=== PATIENT | male | born 1955 ===

== ENCOUNTER 2021-02-15 16:09 | Emergency (ER) | payer SELFPAY ==
[2021-02-15] MEDS ORDERED: Sodium Chloride 0.9% 2.5 ML Syringe FLUSH PRN (16:29)
[2021-02-15] MEDS ORDERED: Sodium Chloride 0.9% 10 ML Syringe FLUSH PRN (16:29)
--- NOTE | 2021-02-15 16:33 | PCM.EKG ---
#1 Interpretation Time: 16:33 EKG Interpretation Comments: 87, normal sinus rhythm, mild ST depression in lateral precordial leads, otherwise nonspecific ST/T findings
--- NOTE | 2021-02-15 17:07 | CR ---
INDICATION: Shortness of breath. TECHNIQUE: Chest 1 view. COMPARISON: None. FINDINGS: Mild bibasilar interstitial opacities. No focal consolidation, pleural effusion, or pneumothorax. Cardiomegaly with prominent central pulmonary vascularity. There is tortuosity or ectasia of the thoracic aorta. Mild degenerative changes of the shoulders. IMPRESSION: 1. Cardiomegaly with mild bibasilar interstitial opacities likely due to edema. 2. Tortuosity or ectasia of the thoracic aorta. Dictated by Jessi Clements MD @ 02/15/2021 5:06:01 PM (Electronically Signed)
[2021-02-15 17:40] LABS: BLOOD UREA NITROGEN,BUN 22 mg/dL (7.0-18.0); CARBON DIOXIDE,CO2 26.2 mmol/L (21.0-32.0); CHLORIDE,CL 102 mmol/L (98-107); GLUCOSE RANDOM 221 mg/dL (74-106); POTASSIUM,K 4.1 mmol/L (3.5-5.1); SODIUM,NA 138 mmol/L (136-148)
--- NOTE | 2021-02-15 17:59 | EDM.PDOC ---
ED HPI GENERAL MEDICAL PROBLEM - General Chief Complaint: Respiratory Problem Stated Complaint: HARD TIME BREATHING Time Seen by Provider: 02/15/21 16:27 Source of Information: Reports: Patient History Limitations: Reports: No Limitations - History of Present Illness INITIAL COMMENTS - FREE TEXT/NARRATIVE: HISTORY AND PHYSICAL: History of present illness: Patient is a 66-year-old male who presents to the emergency room with his son with complaints of shortness of breath, cough and headache since yesterday. Patient denies any fever, chills, headache, change in vision, syncope or near syncope. Denies any chest pain, back pain, shortness of breath or cough. Denies any abdominal pain, nausea, vomiting, diarrhea, constipation or dysuria. Has not noted any blood in urine or stool. Patient has been eating and drinking appropriately. No recent travel or sick contacts. Review of systems: As per history of present illness and below otherwise all systems reviewed and negative. Past medical history: As per history of present illness and as reviewed below otherwise noncontributory. Surgical history: As per history of present illness and as reviewed below otherwise non contributory. Social history: See social history for further information Family history: As per history of present illness and as reviewed below otherwise noncontributory. Physical exam: General: Well developed and well nourished. Alert and orientated x 3. Nontoxic in appearance and in no acute distress. Vital signs are stable and have been reviewed by me. Nursing notes were reviewed. HEENT: Atraumatic, normocephalic, pupils equal and reactive bilaterally, negative for conjunctival pallor or scleral icterus, mucous membranes moist, TMs normal bilaterally, throat clear, neck supple, nontender, trachea midline. No drooling or trismus noted. No meningeal signs. No hot potato voice noted. Lungs: Clear to auscultation bilaterally. No wheezes, rales, or rhonchi. Chest nontender. Normal work of breathing, no accessory muscles used. Heart: S1S2, regular rate and rhythm without overt murmur, gallops, or rubs. No JVD. No peripheral edema Abdomen: Soft, nondistended, nontender. Normoactive bowel sounds. Negative for masses or costovertebral tenderness. Skin: Intact, warm, dry. No lesions or rashes noted. Hematologic: No petechiae or purpra. Mucosa appropriate color and normal nail bed color and refill. Extremities: Atraumatic, moves all extremities per self without difficulty or deficits, negative for cords or calf pain. Neurovascular unremarkable. Neuro: Awake, alert, oriented. Cranial nerves II through XII unremarkable. Cerebellum unremarkable. Motor and sensory unremarkable throughout. Exam nonfocal. Psychiatric: Mood and affect are appropriate. Normal thought process. Answering questions appropriately. Please note that the patient was seen and evaluated during the 2019 SARS-CoV-2 novel coronavirus pandemic period. Community viral transmission is ongoing at time of this encounter and the emergency department is operating under pandemic response procedures. Medical Decision Making: Patient's hemoglobin is low at 9.7, hematocrit 34.0. The family member states that he is chronically anemic and this is not new. He denies any dark tarry stools or bright red blood per rectum. BUN and creatinine are slightly elevated at 22 and 1.9. BNP is 581. Negative troponin. EKG shows no acute or concerning findings for STEMI. Chest x-ray shows cardiomegaly with mild bibasilar interstitial opacities likely due to edema. Tortuosity or ectasia of the thoracic aorta. We will give oral prednisone at this time. I have discussed with patient and family member at bedside all of today's findings, in addition to providing specific details for plan of care. I did offer admission which he declines. The son at bedside also declined stating that he is the primary caregiver and they both would prefer him going home. Reassessment at the time of disposition demonstrates that the patient is in no acute distress. Did ambulate patient with oxygen sensor, the lowest oxygen saturation is 94% on room air. He is ambulatory to the bathroom to void without assistance. The patient is stable for discharge, counseling was provided and we discussed in great detail signs and symptoms that would prompt them to return to the Emergency Department. Medication, strict follow up and supportive care measures were reviewed and discussed. Voices understanding and is agreeable to plan of care. Denies any further questions or concerns at this time. Diagnostics: CBC, CMP, BNP, Troponin, EKG, CXR Therapeutics: IV fluids, Prednisone Prescription: Prednisone Impression: Renal insufficiency, mild Anemia COVID-19 Plan: 1. Your COVID-19 screening is positive. That means you do have the coronavirus and you are considered contagious. Your vital signs and oxygen saturation are well enough that you were able to monitor your symptoms at home. Continue to monitor for trouble breathing, new confusion or inability to arouse, bluish lips or face or any of the other symptoms we discussed -if this occurs please return to the emergency room immediately. 2. Please self quarantine until cleared by [facility] Department. Inform any persons that you have been in contact with since you started becoming symptomatic that you have tested positive; they should be made aware and take the appropriate steps as needed. 3. You can take NyQuil during the evening to help get a restful night sleep. May alternate Tylenol and ibuprofen as needed for pain and fever management. 4. The [facility] department will be calling you and following up with you. The [employer] Hotline phone number , They are open Friday - Friday 7am - 7pm. Follow up with your primary care provider for re-evaluation as directed. Definitive disposition and diagnosis as appropriate pending reevaluation and review of above. - Related Data Allergies Allergy/AdvReac Type Severity Reaction Status Date / Time No Known Allergies Allergy Verified 02/15/21 16:22 Home Meds: Home Meds Furosemide [Lasix] 20 mg PO DAILY #5 tab 02/15/21 [Rx] Pantoprazole Sodium [Protonix] 20 mg PO DAILY 02/15/21 [History] atorvaSTATin [Lipitor] 40 mg PO 02/15/21 [History] carvediloL [Carvedilol] 25 mg PO 02/15/21 [History] lisinopriL [Lisinopril] 20 mg PO 02/15/21 [History] Past Medical History Cardiovascular History: Reports: High Cholesterol, Hypertension Gastrointestinal History: Reports: Other (See Below) Other Gastrointestinal History: peptic ulcers Social & Family History - Tobacco Use Tobacco Use Status *Q: Former Tobacco User Used Tobacco, but Quit: Yes Month/Year Tobacco Last Used: years ago ED ROS GENERAL - Review of Systems Review Of Systems: Comprehensive ROS is negative, except as noted in HPI. ED EXAM, GENERAL - Physical Exam Exam: See Below (See dictation) Course - Vital Signs Last Recorded V/S: Last Vital Signs Temp 98.5 F 02/15/21 16:24 Pulse 95 02/15/21 18:30 Resp 18 02/15/21 18:30 BP 177/104 H 02/15/21 18:30 Pulse Ox 97 10/28/21 18:30 - Orders/Labs/Meds Orders: Active Orders 24 hr Category Date Time Status Sodium Chloride 0.9% [Saline Flush] Med 02/15/21 16:29 Active 10 ml FLUSH ASDIRECTED PRN Sodium Chloride 0.9% [Saline Flush] Med 02/15/21 16:29 Active 2.5 ml FLUSH ASDIRECTED PRN Saline Lock Insert [OM.PC] Stat Oth 02/15/21 16:29 Ordered Medication Orders Sodium Chloride (Sodium Chloride 0.9% 10 Ml Syringe) 10 ml FLUSH ASDIRECTED PRN PRN Reason: Keep Vein Open Last Admin: 02/15/21 16:55 Dose: 10 ml Documented by: MAK Sodium Chloride (Sodium Chloride 0.9% 2.5 Ml Syringe) 2.5 ml FLUSH ASDIRECTED PRN PRN Reason: Keep Vein Open Last Admin: 02/15/21 16:55 Dose: 2.5 ml Documented by: MAK Labs: Laboratory Tests 02/15/21 02/15/21 02/15/21 Range/Units 16:35 17:09 17:09 WBC 5.25 (4.0-11.0) K/uL RBC 5.13 (4.50-5.90) M/uL Hgb 9.7 L (13.0-17.0) g/dL Hct 34.0 L (38.0-50.0) % MCV 66.3 L (80.0-98.0) fL MCH 18.9 L (27.0-32.0) pg MCHC 28.5 L (31.0-37.0) g/dL RDW Std Deviation 45.7 (28.0-62.0) fl RDW Coeff of Bulmaro 19 H (11.0-15.0) % Plt Count 185 (150-400) K/uL MPV 10.10 (7.40-12.00) fL Neut % (Auto) 78.2 (48.0-80.0) % Lymph % (Auto) 6.3 L (16.0-40.0) % [place] % (Auto) 14.7 (0.0-15.0) % Eos % (Auto) 0.6 (0.0-7.0) % Baso % (Auto) 0.2 (0.0-1.5) % Neut # (Auto) 4.1 (1.4-5.7) K/uL Lymph # (Auto) 0.3 L (0.6-2.4) K/uL [place] # (Auto) 0.8 (0.0-0.8) K/uL Eos # (Auto) 0.0 (0.0-0.7) K/uL Baso # (Auto) 0.0 (0.0-0.1) K/uL Nucleated RBC % 0.0 /100WBC Nucleated RBCs # 0 K/uL Sodium 138 (136-148) mmol/L Potassium 4.1 (3.5-5.1) mmol/L Chloride 102 (98-107) mmol/L Carbon Dioxide 26.2 (21.0-32.0) mmol/L BUN 22 H (7.0-18.0) mg/dL Creatinine 1.9 H (0.8-1.3) mg/dL Est Cr Clr Drug Dosing TNP Estimated GFR (MDRD) 35.6 ml/min Glucose 221 H (74-106) mg/dL Calcium 7.8 L (8.5-10.1) mg/dL Total Bilirubin 1.6 H (0.2-1.0) mg/dL AST 22 (15-37) IU/L ALT 22 (14-63) IU/L Alkaline Phosphatase 87 (46-116) U/L Troponin I < 0.050 (0.000-0.056) ng/mL B-Natriuretic Peptide (<100) PG/ML Total Protein 7.5 (6.4-8.2) g/dL Albumin 3.3 L (3.4-5.0) g/dL Globulin 4.2 H (2.6-4.0) g/dL Albumin/Globulin Ratio 0.8 L (0.9-1.6) SARS-CoV-2 RNA (ANTHONY) POSITIVE H (NEGATIVE) 02/15/21 Range/Units 17:09 WBC (4.0-11.0) K/uL RBC (4.50-5.90) M/uL Hgb (13.0-17.0) g/dL Hct (38.0-50.0) % MCV (80.0-98.0) fL MCH (27.0-32.0) pg MCHC (31.0-37.0) g/dL RDW Std Deviation (28.0-62.0) fl RDW Coeff of Bulmaro (11.0-15.0) % Plt Count (150-400) K/uL MPV (7.40-12.00) fL Neut % (Auto) (48.0-80.0) % Lymph % (Auto) (16.0-40.0) % [place] % (Auto) (0.0-15.0) % Eos % (Auto) (0.0-7.0) % Baso % (Auto) (0.0-1.5) % Neut # (Auto) (1.4-5.7) K/uL Lymph # (Auto) (0.6-2.4) K/uL [place] # (Auto) (0.0-0.8) K/uL Eos # (Auto) (0.0-0.7) K/uL Baso # (Auto) (0.0-0.1) K/uL Nucleated RBC % /100WBC Nucleated RBCs # K/uL Sodium (136-148) mmol/L Potassium (3.5-5.1) mmol/L Chloride (98-107) mmol/L Carbon Dioxide (21.0-32.0) mmol/L BUN (7.0-18.0) mg/dL Creatinine (0.8-1.3) mg/dL Est Cr Clr Drug Dosing Estimated GFR (MDRD) ml/min Glucose (74-106) mg/dL Calcium (8.5-10.1) mg/dL Total Bilirubin (0.2-1.0) mg/dL AST (15-37) IU/L ALT (14-63) IU/L Alkaline Phosphatase (46-116) U/L Troponin I (0.000-0.056) ng/mL B-Natriuretic Peptide 581 H (<100) PG/ML Total Protein (6.4-8.2) g/dL Albumin (3.4-5.0) g/dL Globulin (2.6-4.0) g/dL Albumin/Globulin Ratio (0.9-1.6) SARS-CoV-2 RNA (ANTHONY) (NEGATIVE) Meds: Medications Generic Name Dose Route Start Last Admin Trade Name Freq PRN Reason Stop Dose Admin Sodium Chloride 10 ml 02/15/21 16:29 02/15/21 16:55 Sodium Chloride 0.9% 10 Ml Syringe FLUSH 10 ml ASDIRECTED PRN Administration Keep Vein Open Sodium Chloride 2.5 ml 02/15/21 16:29 02/15/21 16:55 Sodium Chloride 0.9% 2.5 Ml Syringe FLUSH 2.5 ml ASDIRECTED PRN Administration Keep Vein Open Discontinued Medications Generic Name Dose Route Start Last Admin Trade Name Freq PRN Reason Stop Dose Admin Furosemide 40 mg 02/15/21 18:40 Furosemide 20 Mg Tab PO 02/15/21 18:41 ONETIME ONE Departure - Departure Time of Disposition: 18:13 Disposition: Home, Self-Care 01 Clinical Impression: COVID-19, Mild renal insufficiency Anemia Qualifiers: Anemia type: unspecified type Qualified Code(s): D64.9 - Anemia, unspecified - Discharge Information Prescriptions: Furosemide [Lasix] 20 mg PO DAILY #5 tab Instructions: 10 Things You Can Do to Manage Your COVID-19 Symptoms at Home - [facility] (11/03/2020) Referrals: Darell Lopez MD [Primary Care Provider] - Forms: ED Department Discharge Additional Instructions: The following information is given to patients seen in the emergency department who are being discharged to home. This information is to outline your options for follow-up care. We provide all patients seen in our emergency department with a follow-up referral. The need for follow-up, as well as the timing and circumstances, are variable depending upon the specifics of your emergency department visit. If you don't have a primary care physician on staff, we will provide you with a referral. We always advise you to contact your personal physician following an emergency department visit to inform them of the circumstance of the visit and for follow-up with them and/or the need for any referrals to a consulting specialist. The emergency department will also refer you to a specialist when appropriate. This referral assures that you have the opportunity for follow-up care with a specialist. All of these measure are taken in an effort to provide you with optimal care, which includes your follow-up. Under all circumstances we always encourage you to contact your private physician who remains a resource for coordinating your care. When calling for follow-up care, please make the office aware that this follow-up is from your recent emergency room visit. If for any reason you are refused follow-up, please contact the [facility] Emergency Department at and asked to speak to the emergency department charge nurse. [facility] [address] [place] [address] [facility] [address] [place] [address] Thank you for choosing the [facility] emergency department in [place] for your medical needs today. It was a pleasure caring for you. Today you were seen in the emergency department for COVID-19 1. Your COVID-19 screening is positive. That means you do have the coronavirus and you are considered contagious. Your vital signs and oxygen saturation are well enough that you were able to monitor your symptoms at home. Continue to monitor for trouble breathing, new confusion or inability to arouse, bluish lips or face or any of the other symptoms we discussed -if this occurs please return to the emergency room immediately. 2. Please self quarantine until cleared by [facility] Department. Inform any persons that you have been in contact with since you started becoming symptomatic that you have tested positive; they should be made aware and take the appropriate steps as needed. 3. You can take NyQuil during the evening to help get a restful night sleep. May alternate Tylenol and ibuprofen as needed for pain and fever management. 4. The [facility] department will be calling you and following up with you. The [facility] Hotline phone number , They are open Friday - Friday 7am - 7pm. Follow up with your primary care provider for re-evaluation as directed. Sepsis Event Note (ED) - Evaluation Sepsis Screening Result: No Definite Risk - Focused Exam Vital Signs: Vital Signs Temp Pulse Resp BP Pulse Ox 02/15/21 18:30 95 18 177/104 H 97 02/15/21 17:32 89 22 H 166/69 H 98 02/15/21 16:24 98.5 F 96 18 182/99 H 94 L - My Orders Last 24 Hours: My Active Orders 02/15/21 16:29 Sodium Chloride 0.9% [Saline Flush] 10 ml FLUSH ASDIRECTED PRN Sodium Chloride 0.9% [Saline Flush] 2.5 ml FLUSH ASDIRECTED PRN Saline Lock Insert [OM.PC] Stat - Assessment/Plan Last 24 Hours: My Active Orders 02/15/21 16:29 Sodium Chloride 0.9% [Saline Flush] 10 ml FLUSH ASDIRECTED PRN Sodium Chloride 0.9% [Saline Flush] 2.5 ml FLUSH ASDIRECTED PRN Saline Lock Insert [OM.PC] Stat
[2021-02-15] MEDS ORDERED: Furosemide 20 MG Tab PO ONE (18:40)
[2021-02-16] MEDS ORDERED: Heparin Sodium/0.45% NaCl 500 ML ONE (17:21)
== END 2021-02-15 18:36 | disposition home or self-care (01) ==
LOC: MW.ED 16:09
DX: U07.1 COVID-19 (principal); D64.9 Anemia, unspecified; N28.9 Disorder of kidney and ureter, unspecified; E78.00 Pure hypercholesterolemia, unspecified; I10 Essential (primary) hypertension; Z87.891 Personal history of nicotine dependence; Z79.899 Other long term (current) drug therapy
CPT/HCPCS: 36415; 71045; 71045-26; 80053; 83880; 84484; 85025; 99285-25; U0002

== ENCOUNTER 2021-02-16 11:31 | Emergency (ER) | payer SELFPAY ==
--- NOTE | 2021-02-16 12:54 | PCM.EKG ---
#1 Interpretation Time: 12:47 EKG Interpretation Comments: 85, normal sinus rhythm, nonspecific ST/T findings
[2021-02-16] MEDS ORDERED: Sodium Chloride 0.9% 10 ML Syringe FLUSH PRN (13:40)
[2021-02-16] MEDS ORDERED: Sodium Chloride 0.9% 2.5 ML Syringe FLUSH PRN (13:40)
[2021-02-16 14:53] LABS: BLOOD UREA NITROGEN,BUN 24 mg/dL (7.0-18.0); CHLORIDE,CL 97 mmol/L (98-107); GLUCOSE RANDOM 174 mg/dL (74-106); POTASSIUM,K 3.8 mmol/L (3.5-5.1); SODIUM,NA 132 mmol/L (136-148)
[2021-02-16] MEDS ORDERED: Aspirin 81 MG Tab.Chew PO ONE (14:56)
[2021-02-16] MEDS ORDERED: Iopamidol 755 MG/ML 500 ML Multipack Bottle IVPUSH STA (15:51)
--- NOTE | 2021-02-16 16:23 | CT ---
INDICATION: Increasing shortness of breath, COVID, elevated troponin TECHNIQUE: CT chest pulmonary PE protocol acquired with 50 cc Isovue 370 IV contrast. COMPARISON: Chest radiograph February 15, 2021 FINDINGS: Cardiovascular structures: Normal vascular enhancement of the pulmonary arteries, no sign of pulmonary embolism. Cardiomegaly. Coronary artery calcifications. The ascending aorta measures 4.5 cm in diameter. Mediastinum and pop: No mass or adenopathy. Lungs: No focal infiltrate. 5 mm pulmonary nodule right lower lobe image 127 series 402. Pleura and pericardium: No effusions. Chest wall and axilla: No mass or adenopathy. Upper abdomen: Tiny calcifications in the pancreas. Cholelithiasis. Bones: No significant findings. IMPRESSION: No pulmonary embolism, pneumonia, or acute intrathoracic abnormality. Cardiomegaly with coronary artery disease. Dilatation of the ascending aorta measuring 4.5 cm. Right lower lobe pulmonary nodule. Recommend follow-up per Fleischner society guidelines, as listed below. Chronic pancreatitis. Cholelithiasis. FLEISCHNER SOCIETY GUIDELINES - SOLID NODULES: SINGLE LOW RISK - nodule less than 6 mm: No routine follow-up. - nodule 6-8 mm: CT at 6-12 months, then consider CT at 18-24 months. - nodule greater than 8 mm: Consider CT at 3 months, PET/CT or tissue sampling. SINGLE HIGH RISK - nodule less than 6 mm: Optional CT at 12 months. - nodule 6-8 mm: CT at 6-12 months, then CT at 18-24 months. - nodule greater than 8 mm: Consider CT at 3 months, PET/CT or tissue sampling. . Please note that all CT scans at this facility use dose modulation, iterative reconstruction, and/or weight-based dosing when appropriate to reduce radiation dose to as low as reasonably achievable. Dictated by Avril Kearns MD @ 02/16/2021 4:22:35 PM (Electronically Signed)
[2021-02-16] MEDS ORDERED: Sodium Chloride 0.9% 1,000 ML IV ONE (16:33)
[2021-02-16] MEDS ORDERED: Heparin Sodium 5,000 Units/ML Vial IVPUSH ONE (16:59)
[2021-02-16] MEDS ORDERED: Clopidogrel 75 MG Tab PO ONE (17:00)
[2021-02-16] MEDS ORDERED: Heparin Sodium/0.45% NaCl 500 ML IV SCH (17:00)
--- NOTE | 2021-02-16 17:23 | EDM.PDOC ---
ED HPI GENERAL MEDICAL PROBLEM - General Chief Complaint: Respiratory Problem Stated Complaint: SOB Time Seen by Provider: 02/16/21 13:26 Source of Information: Reports: Patient, Family History Limitations: Reports: No Limitations, Other (Poor historian) - History of Present Illness INITIAL COMMENTS - FREE TEXT/NARRATIVE: HISTORY AND PHYSICAL: History of present illness: Patient is a 66-year-old male, with a known COVID-19 diagnosis since yesterday on 02/15/2021, who presents emergency room today with concern of shortness of breath. Patient states that he has been having fevers off and on and cough for the past 7 days but states that he started feeling more short of breath yesterday morning. Patient states he did come into the emergency room yesterday and at that time was sent home with COVID-19 diagnosis. Patient states that overnight, he was unable to sleep as he continued to feel short of breath and coughing. Patient's family member who is at bedside states that he could hear him coughing all night long and states that this morning he was so weak he could not take care of himself or get out of bed so family member brought him here to the emergency room. Patient states at this time, he feels well until he fall at rest except for is having some generalized body aches and a cough but states that his shortness of breath is worse with exertion. Patient has a history of hypertension, hyperlipidemia, and prior stroke. Patient denies chest pain. Denies headache, neck stiff ness, change in vision, syncope, or near syncope. Denies nausea, vomiting, abdominal pain, diarrhea, constipation, or dysuria. Has not noted any blood in urine or stool. Review of systems: As per history of present illness and below otherwise all systems reviewed and negative. Past medical history: As per history of present illness and as reviewed below otherwise noncontributory. Surgical history: As per history of present illness and as reviewed below otherwise noncon tributory. Social history: See social history for further information Family history: As per history of present illness and as reviewed below otherwise noncontributory. Physical exam: General: Patient is alert, oriented, and in no acute distress. Patient sitting comfortably on exam table tired appearing. Vitals stable and reviewed by me. HEENT: Atraumatic, normocephalic, pupils equal and reactive bilaterally, negative for conjunctival pallor or scleral icterus, mucous membranes moist, throat clear, neck supple, nontender, trachea midline. No drooling or trismus noted. No meningeal signs. No hot potato voice noted. Lungs: Dry cough on exam. Otherwise, clear to auscultation, breath sounds equal bilaterally, chest nontender. Heart: S1S2, regular rate and rhythm without overt murmur Abdomen: Soft, nondistended, nontender. Negative for masses or hepatosplenomegaly. Negative for costovertebral tenderness. Pelvis: Stable nontender. Genitourinary: Deferred. Rectal: Deferred. Skin: Intact, warm, dry. No lesions or rashes noted. Extremities: Atraumatic, negative for cords or calf pain. Neurovascular unremarkable. Neuro: Awake, alert, oriented. Cranial nerves II through XII unremarkable. Cerebellum unremarkable. Motor and sensory unremarkable throughout. Exam nonfocal. Medical Decision Making: Dr. Cabral directly involved in patient care. Patient is a 66-year-old male, with a history of hypertension, hyperlipidemia, and prior stroke, who presents emergency room today with concern of worsening shortness of breath and known COVID-19 diagnosis since yesterday. Upon arrival to the ED, patient is vitally stable and tired appearing but well-appearing on exam. Patient is breathing comfortably but does have a dry cough on exam, otherwise exam is unremarkable. Will obtain cardiac evaluation, and reassess patient. See Dr. Cabral's dictation for specific EKG interpretation. However, normal sinus rhythm without STEMI. Nonspecific ST/T findings which are unchanged from EKG yesterday. CBC does show anemia with a hemoglobin of 9.8, hematocrit of 33.3 with microcytic indices with MCV of 64.5, MCH of 19, MCHC of 29.4. Patient does have thrombocytopenia with platelets at 146. Otherwise mild derangements of CBC unremarkable. Anemia does appear stable from lab work yesterday. CMP does show mild hyponatremia with sodium of 132, hypochloremia of 97. Creatinine and BUN are elevated at 2.1 and 24 which is slightly increased from lab work yesterday. Glucose is mildly elevated at 174. Corrected calcium for albumin is mildly decreased at 8. Total bilirubin is elevated in isolation at 1.9. BNP is elevated at 802 today which has slightly worsened since lab work yesterday. Troponin is elevated at 2.69. Patient does have a GFR today of 31.0. I did speak to the radiologist Dr. Clements, thoroughly discussed patient's case about receiving an angiography of the chest for PE rule out. All risks versus benefits discussed with the radiologist who given patient's concern for Covid with significant elevation of troponin, agreeable that the risks outweigh the benefits of IV contrast and recommends 1 L fluid bolus following the angiography of chest. Ang CT Chest shows no pulmonary embolism, pneumonia, or acute intrathoracic abnormality. Cardiomegaly with coronary artery disease. Dilation of the ascending aorta at 4.5 cm. Right lower lobe pulmonary nodule. Chronic pancreatitis. Cholelithiasis. Repeat EKG shows no acute changes from prior Upon reevaluation of patient, he remains vitally stable and comfortable throughout stay in ED. Patient does not have any chest pain and states that his symptoms have remained otherwise stable here in the emergency room. Will repeat troponin. However, I did call and speak to the blower mechanic monotype keyboard operator, Dr. English, and thoroughly discussed patient's case. He states that at this time, given the rising troponin since yesterday, would recommend transfer patient for NSTEMI, although myocarditis secondary to COVID is possible, and would like us to start heparin drip, bolus with 600 mg of Plavix. I did call and speak to Dr. Alvarado, [facility], and thoroughly discussed patient's case. Accepting of transfer. No transport available so will fly patient. Diagnostics: EKG x 2, CBC, CMP, BNP, troponin x 2, Ang CT chest Therapeutics: NS, ASA, Heparin gtt/bolus, Plavix Impression: NSTEMI COVID-19 viral infection Renal insufficiency, unspecified Microcytic anemia, unspecified Plan: Transfer to Dr. Alvarado via flight Critical care time is exclusive of billable procedures and the time to perform these procedures. Critical care time was used to prevent vital system organ failure and deterioration. Critical care time includes bedside management and high-complexity decision making requiring my highest level of mental preparedness and attention. This includes reviewing the patient's chart and prior medical records, ordering and reviewing interpreting laboratory studies and imaging results, interpretation of vital signs and EKG, pulse oximetry, and discussion with flight and nursing staff. Patient presented with multiple critical lab values that required immediate intervention, and immediate transfer to higher level facility for additional close monitoring and continuation of treatment CC Time: 45 minutes Definitive disposition and diagnosis as appropriate pending reevaluation and review of above. - Related Data Allergies Allergy/AdvReac Type Severity Reaction Status Date / Time No Known Allergies Allergy Verified 02/16/21 13:35 Home Meds: Home Meds Furosemide [Lasix] 20 mg PO DAILY #5 tab 02/15/21 [Rx] Pantoprazole Sodium [Protonix] 20 mg PO DAILY 02/15/21 [History] atorvaSTATin [Lipitor] 40 mg PO 02/15/21 [History] carvediloL [Carvedilol] 25 mg PO 02/15/21 [History] lisinopriL [Lisinopril] 20 mg PO 02/15/21 [History] Past Medical History Cardiovascular History: Reports: High Cholesterol, Hypertension Gastrointestinal History: Reports: Other (See Below) Other Gastrointestinal History: peptic ulcers Social & Family History - Family History Family Medical History: No Pertinent Family History - Tobacco Use Tobacco Use Status *Q: Former Tobacco User Used Tobacco, but Quit: Yes Month/Year Tobacco Last Used: 2016 ED ROS GENERAL - Review of Systems Review Of Systems: Comprehensive ROS is negative, except as noted in HPI. ED EXAM, GENERAL - Physical Exam Exam: See Below (see dictation) Course - Vital Signs Last Recorded V/S: Last Vital Signs Temp 98.5 F 02/16/21 13:31 Pulse 102 H 02/16/21 18:00 Resp 16 02/16/21 16:07 BP 183/91 H 02/16/21 18:00 Pulse Ox 98 02/16/21 18:00 - Orders/Labs/Meds Orders: Active Orders 24 hr Category Date Time Status Saline Lock Insert [OM.PC] Stat Oth 02/16/21 13:40 Ordered Labs: Laboratory Tests 02/16/21 02/16/21 02/16/21 Range/Units 14:05 14:20 14:20 WBC 4.42 (4.0-11.0) K/uL RBC 5.16 (4.50-5.90) M/uL Hgb 9.8 L (13.0-17.0) g/dL Hct 33.3 L (38.0-50.0) % MCV 64.5 L (80.0-98.0) fL MCH 19.0 L (27.0-32.0) pg MCHC 29.4 L (31.0-37.0) g/dL RDW Std Deviation 44.9 (28.0-62.0) fl RDW Coeff of Bulmaro 19 H (11.0-15.0) % Plt Count 146 L (150-400) K/uL MPV (7.40-12.00) fL Add Manual Diff YES Neutrophils % (Manual) 70 (48.0-80.0) % Lymphocytes % (Manual) 14 L (16.0-40.0) % Monocytes % (Manual) 15 (0.0-15.0) % Basophils % (Manual) 1 (0.0-1.5) % Nucleated RBC % 0.0 /100WBC Absolute Seg Neuts 3.1 (1.4-5.7) Band Neutrophils # 0.6 Lymphocytes # (Manual) 0.6 (0.6-2.4) Monocytes # (Manual) 0.7 (0.0-0.8) Basophils # (Manual) 0.0 (0.0-0.1) Nucleated RBCs # 0 K/uL Poikilocytosis 1+ SLIGHT Anisocytosis 1+ SLIGHT INR APTT (18.6-31.3) SEC Sodium 132 L (136-148) mmol/L Potassium 3.8 (3.5-5.1) mmol/L Chloride 97 L (98-107) mmol/L Carbon Dioxide 23.0 (21.0-32.0) mmol/L BUN 24 H (7.0-18.0) mg/dL Creatinine 2.1 H (0.8-1.3) mg/dL Est Cr Clr Drug Dosing TNP Estimated GFR (MDRD) 31.8 ml/min Glucose 174 H (74-106) mg/dL Calcium 7.8 L (8.5-10.1) mg/dL Total Bilirubin 1.9 H (0.2-1.0) mg/dL AST 36 (15-37) IU/L ALT 20 (14-63) IU/L Alkaline Phosphatase 79 (46-116) U/L Troponin I 2.690 H* (0.000-0.056) ng/mL B-Natriuretic Peptide 802 H (<100) PG/ML Total Protein 7.7 (6.4-8.2) g/dL Albumin 3.2 L (3.4-5.0) g/dL Globulin 4.5 H (2.6-4.0) g/dL Albumin/Globulin Ratio 0.7 L (0.9-1.6) 02/16/21 02/16/21 02/16/21 Range/Units 14:20 14:20 16:43 WBC (4.0-11.0) K/uL RBC (4.50-5.90) M/uL Hgb (13.0-17.0) g/dL Hct (38.0-50.0) % MCV (80.0-98.0) fL MCH (27.0-32.0) pg MCHC (31.0-37.0) g/dL RDW Std Deviation (28.0-62.0) fl RDW Coeff of Bulmaro (11.0-15.0) % Plt Count (150-400) K/uL MPV (7.40-12.00) fL Add Manual Diff Neutrophils % (Manual) (48.0-80.0) % Lymphocytes % (Manual) (16.0-40.0) % Monocytes % (Manual) (0.0-15.0) % Basophils % (Manual) (0.0-1.5) % Nucleated RBC % /100WBC Absolute Seg Neuts (1.4-5.7) Band Neutrophils # Lymphocytes # (Manual) (0.6-2.4) Monocytes # (Manual) (0.0-0.8) Basophils # (Manual) (0.0-0.1) Nucleated RBCs # K/uL Poikilocytosis Anisocytosis INR 1.13 APTT 25.8 (18.6-31.3) SEC Sodium (136-148) mmol/L Potassium (3.5-5.1) mmol/L Chloride (98-107) mmol/L Carbon Dioxide (21.0-32.0) mmol/L BUN (7.0-18.0) mg/dL Creatinine (0.8-1.3) mg/dL Est Cr Clr Drug Dosing Estimated GFR (MDRD) ml/min Glucose (74-106) mg/dL Calcium (8.5-10.1) mg/dL Total Bilirubin (0.2-1.0) mg/dL AST (15-37) IU/L ALT (14-63) IU/L Alkaline Phosphatase (46-116) U/L Troponin I 2.870 H* (0.000-0.056) ng/mL B-Natriuretic Peptide (<100) PG/ML Total Protein (6.4-8.2) g/dL Albumin (3.4-5.0) g/dL Globulin (2.6-4.0) g/dL Albumin/Globulin Ratio (0.9-1.6) Meds: Medications Discontinued Medications Generic Name Dose Route Start Last Admin Trade Name Freq PRN Reason Stop Dose Admin Aspirin 324 mg 02/16/21 14:56 02/16/21 16:03 Aspirin 81 Mg Tab.Chew PO 02/16/21 14:57 324 mg ONETIME ONE Administration Clopidogrel Bisulfate 600 mg 02/16/21 17:00 02/16/21 17:10 Clopidogrel 75 Mg Tab PO 02/16/21 17:01 600 mg ONETIME ONE Administration Heparin Sodium (Porcine) 4,000 units 02/16/21 16:59 02/16/21 17:11 Heparin Sodium 5,000 Units/Ml Vial IVPUSH 02/16/21 17:00 4,000 units .BOLUS ONE Administration Sodium Chloride 1,000 mls @ 500 mls/hr 02/16/21 16:33 02/16/21 16:46 Normal Saline IV 02/16/21 18:32 500 mls/hr STAT ONE Administration Heparin Sodium/Sodium Chloride 500 mls @ 23.95 mls/hr 02/16/21 17:00 02/16/21 17:25 Heparin 25,000 Units In 1/2 Ns 500 Ml IV 12 units/kg/hr TITRATE NAIN 23.95 mls/hr Administration Protocol 12 UNITS/KG/HR Iopamidol 50 ml 02/16/21 15:51 02/16/21 15:51 Iopamidol 755 Mg/Ml 500 Ml Multipack Bottle IVPUSH 02/16/21 15:52 50 ml ONETIME STA Administration Sodium Chloride 10 ml 02/16/21 13:40 02/16/21 16:52 Sodium Chloride 0.9% 10 Ml Syringe FLUSH 10 ml ASDIRECTED PRN Administration Keep Vein Open Sodium Chloride 2.5 ml 02/16/21 13:40 02/16/21 16:51 Sodium Chloride 0.9% 2.5 Ml Syringe FLUSH 2.5 ml ASDIRECTED PRN Administration Keep Vein Open Departure - Departure Time of Disposition: 17:23 Disposition: DC/Tfer to Acute Hospital 02 Clinical Impression: NSTEMI (non-ST elevated myocardial infarction), COVID-19 virus infection, Renal insufficiency, Microcytic anemia - Discharge Information Referrals: PCP,None [Primary Care Provider] - Forms: ED Department Discharge Sepsis Event Note (ED) - Evaluation Sepsis Screening Result: No Definite Risk - Focused Exam Vital Signs: Vital Signs Temp Pulse Resp BP Pulse Ox 02/16/21 18:00 102 H 183/91 H 98 02/16/21 17:00 89 145/85 H 97 02/16/21 16:07 85 16 153/90 H 96 02/16/21 15:00 89 149/85 H 97 02/16/21 14:00 86 142/81 H 97 02/16/21 13:31 98.5 F 82 16 159/84 H 95 - My Orders Last 24 Hours: My Active Orders 02/16/21 13:40 Saline Lock Insert [OM.PC] Stat - Assessment/Plan Last 24 Hours: My Active Orders 02/16/21 13:40 Saline Lock Insert [OM.PC] Stat
== END 2021-02-16 17:45 ==
LOC: MW.ED 11:31
DX: U07.1 COVID-19 (principal); I21.4 Non-ST elevation (NSTEMI) myocardial infarction; E78.00 Pure hypercholesterolemia, unspecified; I10 Essential (primary) hypertension; N28.9 Disorder of kidney and ureter, unspecified; D53.9 Nutritional anemia, unspecified; Z87.891 Personal history of nicotine dependence
CPT/HCPCS: 36415; 71275; 80053; 83880; 84484; 85025; 85610; 85730; 93005; 96365; 99285; A9270; J1644; J7030; Q9967

== ENCOUNTER 2021-06-19 09:55 | Inpatient (IN) | payer SELFPAY ==
[2021-06-19 11:09] LABS: BLOOD UREA NITROGEN,BUN 17 mg/dL (7.0-18.0); CARBON DIOXIDE,CO2 25.9 mmol/L (21.0-32.0); CHLORIDE,CL 106 mmol/L (98-107); GLUCOSE RANDOM 140 mg/dL (74-106); LIPASE 295 U/L (73-393); SODIUM,NA 140 mmol/L (136-148)
[2021-06-19] MEDS ORDERED: hydrALAZINE 20 MG/ML SDV IVPUSH ONE ×2 (11:22→14:30)
[2021-06-19] MEDS ORDERED: Losartan 50 MG Tab PO ONE (12:17)
[2021-06-19] MEDS ORDERED: Sodium Chloride 0.9% 10 ML Syringe FLUSH PRN (12:44)
[2021-06-19] MEDS ORDERED: Sodium Chloride 0.9% 2.5 ML Syringe FLUSH PRN (12:44)
[2021-06-19] MEDS ORDERED: Glucagon,Human Recombinant 1 MG Vial IM PRN (12:45)
[2021-06-19] MEDS ORDERED: Haloperidol 1 MG Tab PO PRN (12:45)
[2021-06-19] MEDS ORDERED: 50% Dextrose in Water 50 ML Syringe IVPUSH PRN (12:45)
[2021-06-19] MEDS ORDERED: Acetaminophen 325 MG Tab PO PRN (13:00)
[2021-06-19] MEDS ORDERED: Ondansetron 4 MG/2 ML SDV IVPUSH PRN (13:00)
[2021-06-19] MEDS ORDERED: Carvedilol 25 MG Tab PO ONE (13:47)
[2021-06-19] MEDS ORDERED: LORazepam 2 MG/ML SDV IVPUSH PRN (14:28)
[2021-06-19] MEDS ORDERED: hydrALAZINE 20 MG/ML SDV IVPUSH PRN (16:00)
[2021-06-19] MEDS: Insulin Aspart 100 Units/ML 3 ML Pen SUBCUT SCH (18:55)
[2021-06-19] MEDS: atorvaSTATin 40 MG Tab PO SCH (20:34)
[2021-06-19] MEDS: Carvedilol 25 MG Tab PO SCH (20:34)
[2021-06-19] MEDS: OLANZapine 5 MG Tab PO SCH (20:35)
[2021-06-19] MEDS: Pantoprazole 40 MG Tab.CR PO SCH (20:35)
[2021-06-19] MEDS ORDERED: levETIRAcetam 500 MG Tab PO SCH (21:00)
[2021-06-19] MEDS: levETIRAcetam 500 MG Tab PO SCH (22:11)
[2021-06-20 07:31] LABS: CARBON DIOXIDE,CO2 25.9 mmol/L (21.0-32.0); POTASSIUM,K 3.9 mmol/L (3.5-5.1)
[2021-06-20] MEDS: Insulin Aspart 100 Units/ML 3 ML Pen SUBCUT SCH ×3 (08:48→17:19)
[2021-06-20] MEDS: Carvedilol 25 MG Tab PO SCH ×2 (09:45→21:03)
[2021-06-20] MEDS: Losartan 50 MG Tab PO SCH (09:50)
[2021-06-20] MEDS: Furosemide 20 MG Tab PO SCH (09:51)
[2021-06-20] MEDS: Pantoprazole 40 MG Tab.CR PO SCH ×2 (09:51→21:03)
[2021-06-20] MEDS: levETIRAcetam 500 MG Tab PO SCH ×2 (09:52→21:02)
[2021-06-20] MEDS: atorvaSTATin 40 MG Tab PO SCH (21:03)
[2021-06-20] MEDS: OLANZapine 5 MG Tab PO SCH (21:03)
[2021-06-21] MEDS: Insulin Aspart 100 Units/ML 3 ML Pen SUBCUT SCH ×2 (08:07→11:40)
[2021-06-21] MEDS: Carvedilol 25 MG Tab PO SCH (09:30)
[2021-06-21] MEDS: Losartan 50 MG Tab PO SCH (09:31)
[2021-06-21] MEDS: Pantoprazole 40 MG Tab.CR PO SCH (09:31)
[2021-06-21] MEDS: levETIRAcetam 500 MG Tab PO SCH (09:31)
[2021-06-21] MEDS: Furosemide 20 MG Tab PO SCH (09:31)
== END 2021-06-21 13:45 | disposition home or self-care (01) | DRG 101 ==
LOC: MW.ED 09:55 → MW.MS 12:30 → UNDOADMIN 12:30
PROVIDERS: ADMIT Internal Medicine; ATTEND Internal Medicine
DX: R56.9 Unspecified convulsions (principal); G81.94 Hemiplegia, unspecified affecting left nondominant side; I13.0 Hypertensive heart and chronic kidney disease with heart failure and stage 1 through stage 4 chronic kidney disease, or unspecified chronic kidney disease; I16.0 Hypertensive urgency; G31.84 Mild cognitive impairment of uncertain or unknown etiology; E11.22 Type 2 diabetes mellitus with diabetic chronic kidney disease; E11.65 Type 2 diabetes mellitus with hyperglycemia; Z20.822 Contact with and (suspected) exposure to COVID-19; N18.30 Chronic kidney disease, stage 3 unspecified; I50.9 Heart failure, unspecified; R32 Unspecified urinary incontinence; Z86.16 Personal history of COVID-19; Z79.899 Other long term (current) drug therapy; I25.2 Old myocardial infarction
CPT/HCPCS: 36410; 36415; 70450; 70450-26; 70553; 70553-26; 71045; 71045-26; 80048; 80053; 80061; 80177; 80305-QW; 80307; 81001; 82550; 82947; 83036; 83690; 84439; 84443; 85025; 93005; 96374; 96375; 97162-GP; 97530-GP; 99285-25; A9270-GY; J0360; J1815-GY; J1953; U0002

== ENCOUNTER 2021-06-25 10:09 | Observation (INO) | payer SELFPAY ==
[2021-06-25] MEDS ORDERED: Sodium Chloride 0.9% 2.5 ML Syringe FLUSH PRN ×2 (10:13→13:48)
[2021-06-25] MEDS ORDERED: Sodium Chloride 0.9% 10 ML Syringe FLUSH PRN ×2 (10:13→13:48)
[2021-06-25 10:56] LABS: BLOOD UREA NITROGEN,BUN 18 mg/dL (7.0-18.0); CARBON DIOXIDE,CO2 29.5 mmol/L (21.0-32.0); CHLORIDE,CL 105 mmol/L (98-107); GLUCOSE RANDOM 130 mg/dL (74-106); POTASSIUM,K 4.6 mmol/L (3.5-5.1); SODIUM,NA 140 mmol/L (136-148)
[2021-06-25 11:13] LABS: CORONAVIRUS COVID-19 NAA POSITIVE (NEGATIVE); INFLUENZA A NAA NEGATIVE (NEGATIVE); INFLUENZA B NAA NEGATIVE (NEGATIVE)
[2021-06-25] MEDS ORDERED: Docusate Sodium 100 MG Cap PO PRN (13:48)
[2021-06-25] MEDS ORDERED: Ondansetron 4 MG/2 ML SDV IVPUSH PRN (13:48)
[2021-06-25] MEDS ORDERED: Acetaminophen 325 MG Tab PO PRN (13:48)
[2021-06-25] MEDS ORDERED: Haloperidol 1 MG Tab PO PRN (13:59)
[2021-06-25] MEDS ORDERED: 50% Dextrose in Water 50 ML Syringe IVPUSH PRN (14:06)
[2021-06-25] MEDS ORDERED: Glucagon,Human Recombinant 1 MG Vial IM PRN (14:06)
[2021-06-25] MEDS: Losartan 50 MG Tab PO SCH (15:33)
[2021-06-25] MEDS: Insulin Aspart 100 Units/ML 3 ML Pen SUBCUT SCH (17:39)
[2021-06-25] MEDS: Pantoprazole 40 MG Tab.CR PO SCH (20:21)
[2021-06-25] MEDS: levETIRAcetam 500 MG Tab PO SCH (20:21)
[2021-06-25] MEDS: OLANZapine 5 MG Tab PO SCH (20:21)
[2021-06-25] MEDS: atorvaSTATin 40 MG Tab PO SCH (20:21)
[2021-06-25] MEDS: Carvedilol 25 MG Tab PO SCH (20:21)
[2021-06-26 06:29] LABS: CARBON DIOXIDE,CO2 26.9 mmol/L (21.0-32.0); POTASSIUM,K 3.8 mmol/L (3.5-5.1)
[2021-06-26] MEDS: Insulin Aspart 100 Units/ML 3 ML Pen SUBCUT SCH ×3 (08:18→17:33)
[2021-06-26] MEDS: Pantoprazole 40 MG Tab.CR PO SCH ×2 (08:19→20:00)
[2021-06-26] MEDS: levETIRAcetam 500 MG Tab PO SCH ×2 (08:19→20:01)
[2021-06-26] MEDS: Losartan 50 MG Tab PO SCH (08:19)
[2021-06-26] MEDS: Carvedilol 25 MG Tab PO SCH ×2 (08:19→20:00)
[2021-06-26] MEDS: Furosemide 20 MG Tab PO SCH (08:20)
[2021-06-26] MEDS: atorvaSTATin 40 MG Tab PO SCH (20:00)
[2021-06-26] MEDS: OLANZapine 5 MG Tab PO SCH (20:01)
[2021-06-27] MEDS: Insulin Aspart 100 Units/ML 3 ML Pen SUBCUT SCH ×2 (06:55→11:49)
[2021-06-27] MEDS: Carvedilol 25 MG Tab PO SCH (08:31)
[2021-06-27] MEDS: Losartan 50 MG Tab PO SCH (08:35)
[2021-06-27] MEDS: levETIRAcetam 500 MG Tab PO SCH (08:36)
[2021-06-27] MEDS: Furosemide 20 MG Tab PO SCH (08:37)
[2021-06-27] MEDS: Pantoprazole 40 MG Tab.CR PO SCH (08:37)
== END 2021-06-27 14:10 | disposition home or self-care (01) ==
LOC: MW.ED 10:09 → MW.MS 13:42
PROVIDERS: ADMIT Internal Medicine; ATTEND Internal Medicine
DX: R41.82 Altered mental status, unspecified (principal); R26.2 Difficulty in walking, not elsewhere classified; R62.7 Adult failure to thrive; U07.1 COVID-19; I69.354 Hemiplegia and hemiparesis following cerebral infarction affecting left non-dominant side; G31.89 Other specified degenerative diseases of nervous system; R56.9 Unspecified convulsions; I13.0 Hypertensive heart and chronic kidney disease with heart failure and stage 1 through stage 4 chronic kidney disease, or unspecified chronic kidney disease; E11.22 Type 2 diabetes mellitus with diabetic chronic kidney disease; I50.9 Heart failure, unspecified; N18.30 Chronic kidney disease, stage 3 unspecified; I25.10 Atherosclerotic heart disease of native coronary artery without angina pectoris; E78.00 Pure hypercholesterolemia, unspecified; I25.2 Old myocardial infarction; Z79.899 Other long term (current) drug therapy; Z20.822 Contact with and (suspected) exposure to COVID-19
CPT/HCPCS: 0240U; 36415; 51798; 70450; 71045; 80048; 80053; 80305; 80307; 81001; 82550; 82947; 83735; 83880; 84484; 85025; 93005; 95816; 97161; 99285; A9270; G0378; J1815

== ENCOUNTER 2022-03-26 09:02 | Emergency (ER) | payer SELFPAY ==
[2022-03-26 11:40] LABS: CORONAVIRUS COVID-19 NAA NEGATIVE (NEGATIVE); INFLUENZA A NAA NEGATIVE (NEGATIVE); INFLUENZA B NAA NEGATIVE (NEGATIVE)
[2022-03-26 11:50] LABS: POTASSIUM,K 4.6 mmol/L (3.5-5.1)
== END 2022-03-26 12:19 | disposition home or self-care (01) ==
LOC: MW.ED 09:02
DX: Z71.1 Person with feared health complaint in whom no diagnosis is made (principal); I11.0 Hypertensive heart disease with heart failure; I50.9 Heart failure, unspecified; I25.2 Old myocardial infarction; E78.00 Pure hypercholesterolemia, unspecified; E11.9 Type 2 diabetes mellitus without complications; F03.90 Unspecified dementia, unspecified severity, without behavioral disturbance, psychotic disturbance, mood disturbance, and anxiety; R56.9 Unspecified convulsions; Z79.899 Other long term (current) drug therapy; Z20.822 Contact with and (suspected) exposure to COVID-19
CPT/HCPCS: 0240U; 36415; 71045; 80053; 85025; 99283

== ENCOUNTER 2022-04-09 19:44 | Inpatient (IN) | payer SELFPAY ==
[2022-04-09] MEDS ORDERED: Sodium Chloride 0.9% 2.5 ML Syringe FLUSH PRN (19:45)
[2022-04-09] MEDS ORDERED: Sodium Chloride 0.9% 10 ML Syringe FLUSH PRN (19:45)
[2022-04-09] MEDS ORDERED: Piperacillin/Tazobactam 3.375 GM in Sodium Chloride 0.9% 50 ML IV ONE (19:47)
[2022-04-09] MEDS ORDERED: Iopamidol 755 MG/ML 500 ML Multipack Bottle IVPUSH STA (20:12)
[2022-04-09 20:32] LABS: BLOOD UREA NITROGEN,BUN 23 mg/dL (7.0-18.0); CARBON DIOXIDE,CO2 30.5 mmol/L (21.0-32.0); CHLORIDE,CL 101 mmol/L (98-107); ESTIMATED GFR 44 mL/min (>60); GLUCOSE RANDOM 171 mg/dL (74-106); LIPASE 321 U/L (73-393); POTASSIUM,K 4.2 mmol/L (3.5-5.1); SODIUM,NA 138 mmol/L (136-148)
[2022-04-09] MEDS ORDERED: levETIRAcetam 1,000 MG in Sodium Chloride 0.9% 100 ML IV STA (20:44)
[2022-04-09 21:07] LABS: CORONAVIRUS COVID-19 NAA NEGATIVE (NEGATIVE); INFLUENZA A NAA NEGATIVE (NEGATIVE); INFLUENZA B NAA NEGATIVE (NEGATIVE); RESPIRATORY SYNCYTIAL VIR NAA NEGATIVE (NEGATIVE)
[2022-04-09] MEDS ORDERED: Sodium Chloride 0.9% 500 ML IV SCH (21:30)
[2022-04-09] MEDS ORDERED: Glucagon,Human Recombinant 1 MG Vial IM PRN (23:39)
[2022-04-09] MEDS ORDERED: 50% Dextrose in Water 50 ML Syringe IVPUSH PRN (23:39)
[2022-04-10] MEDS: Insulin Aspart 100 Units/ML 3 ML Pen SUBCUT SCH ×3 (07:56→17:50)
[2022-04-10 08:49] LABS: BLOOD UREA NITROGEN,BUN 23 mg/dL (7.0-18.0); CARBON DIOXIDE,CO2 26.6 mmol/L (21.0-32.0); CHLORIDE,CL 103 mmol/L (98-107); GLUCOSE RANDOM 147 mg/dL (74-106); POTASSIUM,K 4.3 mmol/L (3.5-5.1); SODIUM,NA 139 mmol/L (136-148)
[2022-04-10 08:51] LABS: ESTIMATED GFR 44 mL/min (>60)
[2022-04-10] MEDS ORDERED: PANTOPRAZOLE 20 MG PO SCH (09:00)
[2022-04-10] MEDS ORDERED: LEVETIRACETAM 750 MG PO SCH (09:00)
[2022-04-10] MEDS ORDERED: Acyclovir 200 MG Cap PO SCH (10:15)
[2022-04-10] MEDS ORDERED: levETIRAcetam 500 MG Tab PO SCH (10:15)
[2022-04-10] MEDS: Pantoprazole 40 MG Tab.CR PO SCH (10:29)
[2022-04-10] MEDS: valACYclovir 500 MG Tab PO SCH ×2 (12:20→20:05)
[2022-04-10] MEDS ORDERED: Gadobenate Dimeglumine 529 MG/ML 20 ML SDV IVPUSH STA (17:35)
[2022-04-10] MEDS: levETIRAcetam 500 MG Tab PO SCH (20:06)
[2022-04-10] MEDS: OLANZapine 5 MG Tab PO SCH (20:06)
[2022-04-10] MEDS: atorvaSTATin 40 MG Tab PO SCH (20:07)
[2022-04-11] MEDS: valACYclovir 500 MG Tab PO SCH ×2 (04:32→12:45)
[2022-04-11] MEDS: Insulin Aspart 100 Units/ML 3 ML Pen SUBCUT SCH ×3 (08:00→17:45)
[2022-04-11] MEDS: levETIRAcetam 500 MG Tab PO SCH (10:21)
[2022-04-11] MEDS: Pantoprazole 40 MG Tab.CR PO SCH (10:22)
[2022-04-11 10:54] LABS: BLOOD UREA NITROGEN,BUN 22 mg/dL (7.0-18.0); CARBON DIOXIDE,CO2 29.4 mmol/L (21.0-32.0); CHLORIDE,CL 105 mmol/L (98-107); GLUCOSE RANDOM 97 mg/dL (74-106); POTASSIUM,K 3.9 mmol/L (3.5-5.1); SODIUM,NA 140 mmol/L (136-148)
[2022-04-11] MEDS: Pantoprazole 40 MG in Sodium Chloride 0.9% 10 ML IVPUSH SCH (10:54)
[2022-04-11 10:55] LABS: ESTIMATED GFR 55 mL/min (>60)
[2022-04-11] MEDS: levETIRAcetam 1,000 MG in Sodium Chloride 0.9% 100 ML IV SCH ×2 (10:55→22:00)
[2022-04-11] MEDS: OLANZapine 5 MG Tab PO SCH (21:59)
[2022-04-11] MEDS: atorvaSTATin 40 MG Tab PO SCH (21:59)
[2022-04-12] MEDS: Pantoprazole 40 MG in Sodium Chloride 0.9% 10 ML IVPUSH SCH (06:54)
[2022-04-12] MEDS: Insulin Aspart 100 Units/ML 3 ML Pen SUBCUT SCH ×2 (07:26→11:50)
[2022-04-12 08:43] LABS: BLOOD UREA NITROGEN,BUN 19 mg/dL (7.0-18.0); CHLORIDE,CL 108 mmol/L (98-107); GLUCOSE RANDOM 87 mg/dL (74-106); POTASSIUM,K 4.6 mmol/L (3.5-5.1); SODIUM,NA 141 mmol/L (136-148)
[2022-04-12 08:50] LABS: ESTIMATED GFR 74 mL/min (>60)
[2022-04-12] MEDS: levETIRAcetam 1,000 MG in Sodium Chloride 0.9% 100 ML IV SCH (12:00)
== END 2022-04-12 13:45 | disposition home or self-care (01) | DRG 57 ==
LOC: MW.ED 19:44 → MW.MS 04-10 00:29 → OBSVTOIN 04-11 09:59 → MW.MS 04-11 15:09
PROVIDERS: ADMIT Internal Medicine; ATTEND Internal Medicine
DX: I69.354 Hemiplegia and hemiparesis following cerebral infarction affecting left non-dominant side (principal); I13.0 Hypertensive heart and chronic kidney disease with heart failure and stage 1 through stage 4 chronic kidney disease, or unspecified chronic kidney disease; N17.9 Acute kidney failure, unspecified; R29.810 Facial weakness; R41.82 Altered mental status, unspecified; F01.50 Vascular dementia, unspecified severity, without behavioral disturbance, psychotic disturbance, mood disturbance, and anxiety; Z66 Do not resuscitate; E11.65 Type 2 diabetes mellitus with hyperglycemia; Z20.822 Contact with and (suspected) exposure to COVID-19; Z51.5 Encounter for palliative care; B02.9 Zoster without complications; G93.89 Other specified disorders of brain; G40.909 Epilepsy, unspecified, not intractable, without status epilepticus; N18.30 Chronic kidney disease, stage 3 unspecified; E11.22 Type 2 diabetes mellitus with diabetic chronic kidney disease; I50.9 Heart failure, unspecified; I25.2 Old myocardial infarction; Z79.899 Other long term (current) drug therapy; Z86.16 Personal history of COVID-19
CPT/HCPCS: 0241U; 36415; 70450; 70450-26; 70496; 70496-26; 70498; 70498-26; 70553; 70553-26; 71045; 71045-26; 74177; 74177-26; 80048; 80053; 81003; 82947; 83605; 83690; 83735; 84100; 84443; 84484; 85025; 85610; 87040; 93005; 97110-GP; 97163-GP; 97166-GO; 97530-GP; A9270-GY; A9577; C9113; J0133; J1953; J2543; J3490; J7040; J7050; Q9967